=== PATIENT | male | born 1930 | race Hispanic/Latino ===

== ENCOUNTER 2016-05-14 05:45 | Inpatient (IN) | payer MEDICARE, OTHER ==
[~2016-05-14] VITALS: Ht 165.1 cm; Wt 52.5 kg
[2016-05-14] MEDS ORDERED: CEFTRIAXONE 1 GM VIAL ONE (07:18)
[2016-05-14] MEDS ORDERED: Furosemide 40 MG/4 ML VIAL ONE (07:19)
[2016-05-14] MEDS ORDERED: SODIUM CHLORIDE 0.9% 100 ML IV ONE (07:19)
[2016-05-14] MEDS: OXCARBAZEPINE 300 MG TAB PO SCH ×2 (09:00→20:22)
[2016-05-14] MEDS ORDERED: NITROGLYCERIN SL 0.4 MG TAB SL SCH (09:00)
[2016-05-14] MEDS ORDERED: SODIUM CHLORIDE 0.9% 1,000 ML IV SCH (09:00)
[2016-05-14] MEDS ORDERED: ALPRAZOLAM 0.25 MG TAB PO PRN (09:00)
[2016-05-14] MEDS: SERTRALINE 100 MG TAB PO SCH (09:00)
[2016-05-14] MEDS: NITROGLYCERIN 0.2 MG/HR PATCH TRANSDERM SCH (09:00)
[2016-05-14] MEDS: LORATADINE 10 MG TAB PO SCH (09:00)
[2016-05-14] MEDS ORDERED: NEBIVOLOL 10 MG TAB PO SCH (09:00)
[2016-05-14] MEDS: CLOPIDOGREL 75 MG TAB PO SCH (09:00)
[2016-05-14] MEDS ORDERED: GLUCAGON 1 MG VIAL IM PRN (09:05)
[2016-05-14] MEDS ORDERED: DEXTROSE 50% SYRINGE 50 ML IV PRN (09:05)
[2016-05-14 13:03] VITALS: BP_SYST 167; RESP 18; TEMP 98
[2016-05-14 13:44] VITALS: BP_SYST 139; RESP 18; TEMP 97.4
[2016-05-14 14:20] VITALS: BP_SYST 122; RESP 16; TEMP 97.2; Ht 165.1 cm; Wt 52.5 kg
[2016-05-14] MEDS: PANTOPRAZOLE 40 MG TAB PO SCH (17:29)
[2016-05-14 19:49] VITALS: BP_SYST 152; RESP 18; TEMP 97.9
[2016-05-14 22:58] VITALS: BP_SYST 154; RESP 18; TEMP 97.6
[2016-05-15] VITALS (10 sets, daily range): BP systolic 139–162; RESP 16–28; TEMP 97.5–98.4
[2016-05-15] MEDS: PANTOPRAZOLE 40 MG TAB PO SCH ×2 (06:24→16:49)
[2016-05-15] MEDS ORDERED: MISSING DOSE XX ONE (07:35)
[2016-05-15] MEDS: LORATADINE 10 MG TAB PO SCH (08:46)
[2016-05-15] MEDS: OXCARBAZEPINE 300 MG TAB PO SCH ×2 (08:46→20:25)
[2016-05-15] MEDS: CLOPIDOGREL 75 MG TAB PO SCH (08:46)
[2016-05-15] MEDS: SERTRALINE 100 MG TAB PO SCH (08:46)
[2016-05-15] MEDS: NITROGLYCERIN 0.2 MG/HR PATCH TRANSDERM SCH (08:46)
[2016-05-15] MEDS: NEBIVOLOL 2.5 MG TAB PO SCH (08:46)
[2016-05-15] MEDS ORDERED: VANCOMYCIN 1,500 MG in SODIUM CHLORIDE 0.9% 250 ML IV STA (09:10)
[2016-05-15] MEDS: LEVOFLOXACIN 250 MG TAB PO SCH (10:44)
[2016-05-15] MEDS ORDERED: LACTULOSE SOLN 20GM/30ML UDC PO PRN (16:50)
[2016-05-16] VITALS (9 sets, daily range): BP systolic 118–159; RESP 16–20; TEMP 97.5–98.8
[2016-05-16] MEDS: PANTOPRAZOLE 40 MG TAB PO SCH ×2 (06:14→16:02)
[2016-05-16] MEDS: NEBIVOLOL 2.5 MG TAB PO SCH (09:00)
[2016-05-16] MEDS: LORATADINE 10 MG TAB PO SCH (09:12)
[2016-05-16] MEDS: OXCARBAZEPINE 300 MG TAB PO SCH ×2 (09:13→21:00)
[2016-05-16] MEDS: LEVOFLOXACIN 250 MG TAB PO SCH (09:13)
[2016-05-16] MEDS: SERTRALINE 100 MG TAB PO SCH (09:13)
[2016-05-16] MEDS: CLOPIDOGREL 75 MG TAB PO SCH (09:13)
[2016-05-16] MEDS: NITROGLYCERIN 0.2 MG/HR PATCH TRANSDERM SCH (09:14)
[2016-05-16] MEDS ORDERED: VANCOMYCIN 500 MG in SODIUM CHLORIDE 0.9% 100 ML IV ONE (12:20)
[2016-05-17 03:41] VITALS: BP_SYST 134; RESP 16; TEMP 98.3
[2016-05-17] MEDS: PANTOPRAZOLE 40 MG TAB PO SCH ×2 (05:35→16:39)
[2016-05-17] MEDS: ACETAMINOPHEN 325 MG TAB PO PRN (05:40)
[2016-05-17 07:36] VITALS: BP_SYST 169; RESP 16; TEMP 97.3
[2016-05-17] MEDS: LEVOFLOXACIN 250 MG TAB PO SCH (08:32)
[2016-05-17] MEDS: LORATADINE 10 MG TAB PO SCH (08:32)
[2016-05-17] MEDS: CLOPIDOGREL 75 MG TAB PO SCH (08:32)
[2016-05-17] MEDS: OXCARBAZEPINE 300 MG TAB PO SCH ×2 (08:32→20:43)
[2016-05-17] MEDS: SERTRALINE 100 MG TAB PO SCH (08:32)
[2016-05-17] MEDS: NEBIVOLOL 2.5 MG TAB PO SCH (08:32)
[2016-05-17] MEDS: NITROGLYCERIN 0.2 MG/HR PATCH TRANSDERM SCH (08:34)
[2016-05-17 11:58] VITALS: BP_SYST 151; RESP 18; TEMP 97.8
[2016-05-17 15:21] VITALS: BP_SYST 163; RESP 18; TEMP 99.1
[2016-05-17 20:08] VITALS: BP_SYST 146; RESP 20; TEMP 98.7
[2016-05-17 22:48] VITALS: BP_SYST 165; RESP 20; TEMP 98.2
[2016-05-18] VITALS (8 sets, daily range): BP systolic 101–165; RESP 16–20; TEMP 97.7–98.9
[2016-05-18] MEDS ORDERED: SALINE FLUSH 10 ML FLUSH PRN (05:45)
[2016-05-18] MEDS: SODIUM CHLORIDE 0.9% FLUSH BAG 500 ML IV SCH (06:00)
[2016-05-18] MEDS: PANTOPRAZOLE 40 MG TAB PO SCH ×2 (07:30→16:42)
[2016-05-18] MEDS: LEVOFLOXACIN 250 MG TAB PO SCH (08:37)
[2016-05-18] MEDS: CLOPIDOGREL 75 MG TAB PO SCH (08:37)
[2016-05-18] MEDS: LORATADINE 10 MG TAB PO SCH (08:37)
[2016-05-18] MEDS: OXCARBAZEPINE 300 MG TAB PO SCH ×2 (08:37→21:21)
[2016-05-18] MEDS: SALINE FLUSH 10 ML FLUSH SCH ×2 (08:38→21:20)
[2016-05-18] MEDS: SERTRALINE 100 MG TAB PO SCH (08:38)
[2016-05-18] MEDS: NITROGLYCERIN 0.2 MG/HR PATCH TRANSDERM SCH (08:39)
[2016-05-18] MEDS: NEBIVOLOL 2.5 MG TAB PO SCH (09:00)
[2016-05-18] MEDS: ACETAMINOPHEN 325 MG TAB PO PRN (14:36)
[2016-05-19 05:45] VITALS: BP_SYST 138; RESP 20; TEMP 97.6
[2016-05-19] MEDS: SODIUM CHLORIDE 0.9% FLUSH BAG 500 ML IV SCH (06:00)
[2016-05-19] MEDS: PANTOPRAZOLE 40 MG TAB PO SCH (06:41)
[2016-05-19 07:00] VITALS: BP_SYST 163; RESP 16; TEMP 97.5
[2016-05-19 08:34] VITALS: BP_SYST 130
[2016-05-19] MEDS: CLOPIDOGREL 75 MG TAB PO SCH (08:39)
[2016-05-19] MEDS: NITROGLYCERIN 0.2 MG/HR PATCH TRANSDERM SCH (08:39)
[2016-05-19] MEDS: LORATADINE 10 MG TAB PO SCH (08:39)
[2016-05-19] MEDS: SALINE FLUSH 10 ML FLUSH SCH (08:40)
[2016-05-19] MEDS: SERTRALINE 100 MG TAB PO SCH (08:40)
[2016-05-19] MEDS: LEVOFLOXACIN 250 MG TAB PO SCH (08:40)
[2016-05-19] MEDS: OXCARBAZEPINE 300 MG TAB PO SCH (08:40)
[2016-05-19] MEDS: NEBIVOLOL 2.5 MG TAB PO SCH (08:44)
[2016-05-19 11:00] VITALS: BP_SYST 126; RESP 16; TEMP 97.6
[2016-05-19 11:25] VITALS: BP_SYST 126; RESP 20; TEMP 97.6
== END 2016-05-19 13:00 | disposition home health service (06) | DRG 291 ==
LOC: ENRESERVTM → ENRESERVDT → ER 05:45 → EMR 08:57 → 3NT 11:23 → OBSVTOIN 05-15 12:21 → ENPENDDIS 05-15 12:21
PROVIDERS: ADMIT Internal Medicine Nephrology; ATTEND Internal Medicine Nephrology
PROC: 5A1D60Z (ICD-10-PCS; principal; 2016-05-14)
DX: I13.2 Hypertensive heart and chronic kidney disease with heart failure and with stage 5 chronic kidney disease, or end stage renal disease (principal); N18.6 End stage renal disease; J18.9 Pneumonia, unspecified organism; G20 Parkinson's disease; K86.1 Other chronic pancreatitis; F02.80 Dementia in other diseases classified elsewhere, unspecified severity, without behavioral disturbance, psychotic disturbance, mood disturbance, and anxiety; I50.33 Acute on chronic diastolic (congestive) heart failure; Z99.2 Dependence on renal dialysis; E11.9 Type 2 diabetes mellitus without complications; I25.10 Atherosclerotic heart disease of native coronary artery without angina pectoris; E78.5 Hyperlipidemia, unspecified; J44.9 Chronic obstructive pulmonary disease, unspecified; M19.90 Unspecified osteoarthritis, unspecified site; Z86.73 Personal history of transient ischemic attack (TIA), and cerebral infarction without residual deficits
CPT/HCPCS: 36415; 71010; 80053; 80202; 81001; 82553; 82947; 83605; 83735; 83880; 84439; 84443; 84484; 85025; 85610; 85730; 87040; 87077; 87088; 87186; 93005; 96365; 96375